=== PATIENT | male | born 1980 | race Hispanic/Latino ===

== ENCOUNTER 2020-07-02 19:58 | Emergency (ER) | payer SELFPAY ==
[2020-07-02 20:40] LABS: Urine Bacteria <20 /HPF (NONE SEEN); Urine Mucus 1+ /HPF (NONE SEEN); Urine RBC 20-50 /HPF (NONE SEEN)
[2020-07-02 20:42] LABS: Urine Blood 3+ (NEG); Urine Glucose 2+ (NEG); Urine Protein 2+ (NEG); Urine Specific Gravity 1.025 (1.005-1.030)
--- NOTE | 2020-07-02 20:52 | RAD REPORT ---
EXAM DESCRIPTION: CT - Stone Protocol - 07/02/2020 8:21 pm CLINICAL HISTORY: Abdominal pain. Hematuria COMPARISON: None. TECHNIQUE: Computed axial tomography of the abdomen pelvis was obtained without oral or IV contrast. Lack of IV and oral contrast limits evaluation of solid organs, bowel, and vessels. Coronal reformat ovidio images were obtained and reviewed. All CT scans are performed using dose optimization technique as appropriate and may include automated exposure control or mA/KV adjustment according to patient size. FINDINGS: A renal calculus is not seen. An ureteral calculus is not noted. A bladder calculus is not present. Fatty liver. , spleen, pancreas and adrenals appear grossly normal There is no evidence of diverticulitis. The appendix appears normal IMPRESSION: Negative for a genitourinary calculus
[2020-07-02 20:55] LABS: Absolute Lymphocytes (CBC) 1.6 K/uL (0.7-4.9); Basophils % 0.4 % (0-1.3); Hematocrit 47.5 % (39.6-49.0); Lymphocytes % 11.1 % (15.3-44.8); MPV 9.7 fL (7.6-11.3); RBC Red Blood Cell Count 5.06 M/uL (4.33-5.43)
[2020-07-02 21:10] LABS: BUN Blood Urea Nitrogen 11 mg/dL (7-18); Bicarbonate 28 mmol/L (21-32); Glucose Level 225 mg/dL (74-106); Potassium 3.6 mmol/L (3.5-5.1); Sodium Level 138 mmol/L (136-145)
[2020-07-02] MEDS ORDERED: CEFTRIAXONE/SWI 1gm 1 GM/10 ML SYR ONE (21:17)
[2020-07-02] MEDS ORDERED: NA CHLORIDE 0.9% 1,000 ML ONE (21:17)
--- NOTE | 2020-07-02 21:28 | EDPHYS ---
Physician Documentation [facility] Name: Magdy Trotter Age: 40 yrs Sex: Male : 1980 Arrival Date: 07/02/2020 Time: 20:02 Bed 13 Private MD: ED Physician Aguila Badillo HPI: 07/02 21:25 This 40 yrs old Male presents to ER via Ambulatory with complaints of Urinary kb Retention, BLOOD IN URINE. 21:26 The patient has not experienced similar symptoms in the past. The patient has not kb recently seen a physician. 21:26 The patient presents with urinary symptoms, dysuria, urinary frequency, urgency. Onset: kb The symptoms/episode began/occurred yesterday. Modifying factors: The symptoms are alleviated by nothing, the symptoms are aggravated by urinating. Associated signs and symptoms: Pertinent positives: dysuria, Pertinent negatives: abdominal pain, constipation, diarrhea, fever, hematuria, nausea, vomiting. Severity of symptoms: At their worst the symptoms were moderate, in the emergency department the symptoms are unchanged. Historical: - Allergies: 20:12 Aspirin; em - PMHx: 20:12 Diabetes - NIDDM; Hypertension; em - PSHx: 20:12 None; em - Immunization history:: Adult Immunizations up to date. - Social history:: Smoking status: Patient denies any tobacco usage or history of. ROS: 21:24 Constitutional: Negative for fever, chills, and weight loss, Cardiovascular: Negative kb for chest pain, palpitations, and edema, Respiratory: Negative for shortness of breath, cough, wheezing, and pleuritic chest pain, Abdomen/GI: Negative for abdominal pain, nausea, vomiting, diarrhea, and constipation, MS/Extremity: Negative for injury and deformity, Skin: Negative for injury, rash, and discoloration, Neuro: Negative for headache, weakness, numbness, tingling, and seizure. 21:24 : Positive for small amounts, burning with urination, difficulty urinating. Exam: 21:24 Constitutional: This is a well developed, well nourished patient who is awake, alert, kb and in no acute distress. Head/Face: Normocephalic, atraumatic. Chest/axilla: Normal chest wall appearance and motion. Nontender with no deformity. No lesions are appreciated. Cardiovascular: Regular rate and rhythm with a normal S1 and S2. No gallops, murmurs, or rubs. Normal PMI, no JVD. No pulse deficits. Respiratory: Lungs have equal breath sounds bilaterally, clear to auscultation and percussion. No rales, rhonchi or wheezes noted. No increased work of breathing, no retractions or nasal flaring. Abdomen/GI: Soft, non-tender, with normal bowel sounds. No distension or tympany. No guarding or rebound. No evidence of tenderness throughout. Skin: Warm, dry with normal turgor. Normal color with no rashes, no lesions, and no evidence of cellulitis. MS/ Extremity: Pulses equal, no cyanosis. Neurovascular intact. Full, normal range of motion. Neuro: Awake and alert, GCS 15, oriented to person, place, time, and situation. Cranial nerves II-XII grossly intact. Motor strength 5/5 in all extremities. Sensory grossly intact. Cerebellar exam normal. Normal gait. Vital Signs: 20:09 BP 173 / 122; Pulse 114; Resp 20; Temp 99.7(O); Pulse Ox 100% on R/A; Weight 70.76 kg; em Height 5 ft. 4 in. (162.56 cm); Pain 0/10; 21:00 BP 155 / 105; Pulse 115; Resp 16; Pulse Ox 100% on R/A; jb4 22:18 BP 143 / 98; Pulse 103; Resp 16; Pulse Ox 100% on R/A; jb4 20:09 Body Mass Index 26.78 (70.76 kg, 162.56 cm) em MDM: 20:03 Patient medically screened. kb 21:24 Data reviewed: vital signs, nurses notes. Data interpreted: Pulse oximetry: on room air kb is 100 %. Interpretation: normal. Counseling: I had a detailed discussion with the patient and/or guardian regarding: the historical points, exam findings, and any diagnostic results supporting the discharge/admit diagnosis, lab results, radiology results, the need for outpatient follow up, a family practitioner, to return to the emergency department if symptoms worsen or persist or if there are any questions or concerns that arise at home. 07/02 20:04 Order name: Urine Microscopic Only; Complete Time: 20:49 kb 07/02 20:04 Order name: CBC with Diff; Complete Time: 21:01 kb 07/02 20:04 Order name: Basic Metabolic Panel; Complete Time: 21:11 kb 07/02 20:07 Order name: CPK; Complete Time: 21:23 kb 07/02 20:32 Order name: Urine Dipstick--Ancillary (enter results); Complete Time: 20:49 tt3 07/02 20:41 Order name: Urine Culture [facility] 07/02 20:04 Order name: Bladder Scanner; Complete Time: 21:00 kb 07/02 20:04 Order name: Urine Dipstick-Ancillary (obtain specimen); Complete Time: 21:00 kb 07/02 20:04 Order name: CT Stone Protocol; Complete Time: 20:58 kb 07/02 20:04 Order name: IV Start; Complete Time: 21:00 kb Administered Medications: 21:10 Drug: NS 0.9% 1000 ml Route: IV; Rate: 1000 ml; Site: right antecubital; em 22:17 Follow up: Response: No adverse reaction; IV Status: Completed infusion; IV Intake: jb4 1000ml 21:10 Drug: Rocephin 1 grams Route: IV; Rate: calculated rate; Site: right antecubital; em 21:13 Follow up: IV Status: Completed infusion; IV Intake: 10ml jb4 21:40 Follow up: Response: No adverse reaction jb4 Disposition: 07/03 16:32 Co-signature as Attending Physician, Aguila Badillo MD I agree with the assessment and yoandy plan of care. Disposition: 07/02/20 21:27 Discharged to Home. Impression: Urinary tract infection, site not specified. - Condition is Stable. - Discharge Instructions: Urinary Tract Infection, Adult, [id number]. - Prescriptions for Augmentin 875- 125 mg Oral Tablet - take 1 tablet by ORAL route every 12 hours for 10 days; 20 tablet. - Medication Reconciliation Form, Thank You Letter, Antibiotic Education, Prescription Opioid Use form. - Follow up: Emergency Department; When: As needed; Reason: Worsening of condition. Follow up: Private Physician; When: 2 - 3 days; Reason: Recheck today's complaints, Continuance of care, Re-evaluation by your physician. Signatures: Dispatcher [facility]Le[facility] South Jackson StreetNereyda Kim, MAURICIO PATRICK-Aguila Monaco MD MD cha Munoz, Edgar, RN RN em [place], Pablo, RN RN jb4 Corrections: (The following items were deleted from the chart) 07/02 22:18 21:27 07/02/2020 21:27 Discharged to Home. Impression: Urinary tract infection, site jb4 not specified. Condition is Stable. Forms are Medication Reconciliation Form, Thank You Letter, Antibiotic Education, Prescription Opioid Use. Follow up: Emergency Department; When: As needed; Reason: Worsening of condition. Follow up: Private Physician; When: 2 - 3 days; Reason: Recheck today's complaints, Continuance of care, Re-evaluation by your physician. kb
--- NOTE | 2020-07-02 21:28 | ER ---
Nurse's Notes [facility] Name: Magdy Trotter Age: 40 yrs Sex: Male : 1980 Arrival Date: 07/02/2020 Time: 20:02 Bed 13 Private MD: Diagnosis: Urinary tract infection, site not specified Presentation: 07/02 20:09 Chief complaint: Patient states: reports difficulty urinating that started an hour ago, em reports brown urine, felt like he was running a fever yesterday, denies pain. Coronavirus screen: Client denies travel out of the [place] in the last 14 days. Ebola Screen: Patient negative for fever greater than or equal to 101.5 degrees Fahrenheit, and additional compatible Ebola Virus Disease symptoms Patient denies exposure to infectious person. Patient denies travel to an Ebola-affected area in the 21 days before illness onset. No symptoms or risks identified at this time. Initial Sepsis Screen: Does the patient meet any 2 criteria? HR > 90 bpm. No. Patient's initial sepsis screen is negative. Does the patient have a suspected source of infection? Yes: Dysuria/Frequency/Urgency/UTI. Risk Assessment: Do you want to hurt yourself or someone else?. Onset of symptoms was July 02, 2020. 20:09 Method Of Arrival: Ambulatory em 20:09 Acuity: GOLDIE 2 em Historical: - Allergies: 20:12 Aspirin; em - PMHx: 20:12 Diabetes - NIDDM; Hypertension; em - PSHx: 20:12 None; em - Immunization history:: Adult Immunizations up to date. - Social history:: Smoking status: Patient denies any tobacco usage or history of. Screenin:15 Abuse screen: Denies threats or abuse. Nutritional screening: No deficits noted. jb4 Tuberculosis screening: No symptoms or risk factors identified. Fall Risk None identified. Assessment: 20:15 General: Appears in no apparent distress. comfortable, Behavior is calm, cooperative, jb4 appropriate for age. Pain: Denies pain. Neuro: Level of Consciousness is awake, alert, obeys commands, Oriented to person, place, time, situation. Cardiovascular: Patient's skin is warm and dry. Respiratory: Airway is patent Respiratory effort is even, unlabored, Respiratory pattern is regular, symmetrical. GI: No signs and/or symptoms were reported involving the gastrointestinal system. : Urine is cloudy, blood tinged, Reports urinary frequency. EENT: No signs and/or symptoms were reported regarding the EENT system. Derm: Skin is intact, Skin is pink, warm \T\ dry. Musculoskeletal: Circulation, motion, and sensation intact. Range of motion: intact in all extremities. 21:15 Reassessment: Patient appears in no apparent distress at this time. Patient and/or jb4 family updated on plan of care and expected duration. Pain level reassessed. Patient is alert, oriented x 3, equal unlabored respirations, skin warm/dry/pink. 21:32 Reassessment: D/c pending completion of IV fluids. jb4 21:51 Reassessment: Patient appears in no apparent distress at this time. Patient and/or jb4 family updated on plan of care and expected duration. Pain level reassessed. Patient is alert, oriented x 3, equal unlabored respirations, skin warm/dry/pink. is at the bedside. 22:18 Reassessment: Patient appears in no apparent distress at this time. Patient and/or jb4 family updated on plan of care and expected duration. Pain level reassessed. Patient is alert, oriented x 3, equal unlabored respirations, skin warm/dry/pink. Vital Signs: 20:09 BP 173 / 122; Pulse 114; Resp 20; Temp 99.7(O); Pulse Ox 100% on R/A; Weight 70.76 kg; em Height 5 ft. 4 in. (162.56 cm); Pain 0/10; 21:00 BP 155 / 105; Pulse 115; Resp 16; Pulse Ox 100% on R/A; jb4 22:18 BP 143 / 98; Pulse 103; Resp 16; Pulse Ox 100% on R/A; jb4 20:09 Body Mass Index 26.78 (70.76 kg, 162.56 cm) em ED Course: 20:02 Patient arrived in ED. cf2 20:03 Nereyda Wheat FNP-C is [facility]. kb 20:03 Aguila Badillo MD is Attending Physician. kb 20:07 Pablo Zavaleta, SUBHASH is Primary Nurse. jb4 20:11 Triage completed. em 20:12 Arm band placed on. em 20:15 Patient has correct armband on for positive identification. Bed in low position. Call jb4 light in reach. Side rails up X 1. Pulse ox on. NIBP on. 20:21 CT completed. Patient tolerated procedure well. Patient moved back from CT. mw3 20:22 CT Stone Protocol In Process Unspecified. EDTN 20:45 Initial lab(s) drawn, by me, sent to lab. Inserted saline lock: 20 gauge in right jb4 antecubital area, using aseptic technique. Blood collected. 22:18 No provider procedures requiring assistance completed. IV discontinued, intact, jb4 bleeding controlled, No redness/swelling at site. Pressure dressing applied. Administered Medications: 21:10 Drug: NS 0.9% 1000 ml Route: IV; Rate: 1000 ml; Site: right antecubital; em 22:17 Follow up: Response: No adverse reaction; IV Status: Completed infusion; IV Intake: jb4 1000ml 21:10 Drug: Rocephin 1 grams Route: IV; Rate: calculated rate; Site: right antecubital; em 21:13 Follow up: IV Status: Completed infusion; IV Intake: 10ml jb4 21:40 Follow up: Response: No adverse reaction jb4 Intake: 21:13 IV: 10ml; Total: 10ml. jb4 22:17 IV: 1000ml; Total: 1010ml. jb4 Outcome: 21:27 Discharge ordered by . guido 21:52 Discharged to home ambulatory, with family. jb4 21:52 Condition: stable 21:52 Discharge instructions given to patient, Instructed on discharge instructions, follow up and referral plans. medication usage, Demonstrated understanding of instructions, follow-up care, medications, Prescriptions given X 1. 22:18 Patient left the ED. jb4 Addendum: 07/05/2020 07:45 Addendum: Culture Results: Positive urine culture. Bacteria is resistant to, has s s intermediate sensitivity, or is not tested against prescribed antibiotics. Report given to SHARRON for further evaluation and then to anode adjuster for follow up with patient. 13:43 Addendum: Culture Results: Phone call Attempt #1 no answer, VM full. Unable to leave .s s Signatures: Dispatcher [employer] EDTN Nereyda Wheat, Wilmer Anguiano RN RN Sona Ferguson RN RN Pablo Zavaleta RN RN jb4 Roxi Cheney mw3 Landen Romero cf2
[2020-07-03 02:41] VITALS: TEMP 99.7; O2SAT 100
[2020-07-03 02:44] VITALS: BP 143/98
== END 2020-07-02 22:18 | disposition home or self-care (01) ==
LOC: ER 19:58
DX: N39.0 Urinary tract infection, site not specified (principal); I10 Essential (primary) hypertension; Z88.6 Allergy status to analgesic agent
CPT/HCPCS: 36415; 74176; 76377; 80048; 81003; 81015; 82550; 85025; 87077; 87086; 87088; 87186; 96361; 96374; 99284; J0696; J7030

== ENCOUNTER 2024-03-22 20:57 | Emergency (ER) | payer SELFPAY ==
[2024-03-22] MEDS ORDERED: KETOROLAC 30 MG/ML INJ ONE (22:02)
[2024-03-22] MEDS ORDERED: hydrOXYzine HCL 25 MG TAB ONE (22:02)
[2024-03-22 22:23] LABS: Absolute Eosinophils 0.1 K/uL (0-0.5); Absolute Lymphocytes (CBC) 1.5 K/uL (0.7-4.9); Absolute Monocytes 0.5 K/uL (0.1-1.3); Absolute Neutrophil 5.1 K/uL (1.8-8.0); Basophils % 0.2 % (0-1.3); Eosinophils % 0.8 % (0-4.4); Hematocrit 42.8 % (39.6-49.0); Lymphocytes % 20.6 % (15.3-44.8); MCV 94.4 fL (80-100); MPV 9.4 fL (7.6-11.3); Monocytes % 6.4 % (3.3-12.3); Nucleated Red Blood Cells % 0.1 % (0-0); Platelets 206 thou/uL (152-406); RBC Red Blood Cell Count 4.53 M/uL (4.33-5.43); Red Cell Distribution Width 12.9 % (12.1-15.2)
[2024-03-22 22:40] LABS: Anion Gap 8.6 mEq/L (5.0-15.0); Potassium 3.6 mEq/L (3.5-5.1)
--- NOTE | 2024-03-22 22:54 | ER ---
Nurse's Notes [facility] Name: Magdy Trotter Age: 43 yrs Sex: Male : 1980 Arrival Date: 03/22/2024 Time: 20:57 Bed 16 Private MD: Diagnosis: Cellulitis, unspecified;Anxious;Hyperglycemia, unspecified Presentation: 03/22 21:47 Chief complaint: Patient states: last weekend sprayed over foot wirg can washer. vc1 Coronavirus screen: Client denies travel out of the [place] in the last 14 days. At this time, the client does not indicate any symptoms associated with coronavirus-19. Ebola Screen: Patient negative for fever greater than or equal to 101.5 degrees Fahrenheit, and additional compatible Ebola Virus Disease symptoms Patient denies exposure to infectious person. Patient denies travel to an Ebola-affected area in the 21 days before illness onset. No symptoms or risks identified at this time. Initial Sepsis Screen: Does the patient meet any 2 criteria? No. Patient's initial sepsis screen is negative. Does the patient have a suspected source of infection? No. Patient's initial sepsis screen is negative. Risk Assessment: Do you want to hurt yourself or someone else? Patient reports no desire to harm self or others. Onset of symptoms was March 15, 2024. Care prior to arrival: None. Activity prior to arrival: None. Mechanism of Injury: can washer. Transition of care: patient was not received from another setting of care. 21:47 Method Of Arrival: Ambulatory vc1 21:47 Acuity: GOLDIE 4 vc1 Triage Assessment: 21:51 General: Appears in no apparent distress. comfortable, slender, well groomed, well vc1 developed, well nourished, Behavior is cooperative, anxious. Pain: Complains of pain in dorsum of left foot Pain does not radiate. Pain currently is 1 out of 10 on a pain scale. EENT: No deficits noted. No signs and/or symptoms were reported regarding the EENT system. Neuro: Level of Consciousness is awake, alert, obeys commands, Oriented to person, place, time, situation, Appropriate for age. Cardiovascular: Capillary refill < 3 seconds Patient's skin is warm and dry. Respiratory: Airway is patent Respiratory effort is even, unlabored, Respiratory pattern is regular, symmetrical. GI: No deficits noted. No signs and/or symptoms were reported involving the gastrointestinal system. : No deficits noted. No signs and/or symptoms were reported regarding the genitourinary system. Derm: Wound noted dorsum of left foot. Musculoskeletal: No deficits noted. No signs and/or symptoms reported regarding the musculoskeletal system. Historical: - Allergies: 21:49 Aspirin; vc1 - Home Meds: 21:49 Metformin Oral [Active]; Lisinopril Oral [Active]; vc1 - PMHx: 21:49 Diabetes - NIDDM; Hypertension; vc1 - PSHx: 21:49 None; vc1 - Immunization history:: Adult Immunizations up to date. - Infectious Disease History:: Denies. - Social history:: Smoking status: Patient denies any tobacco usage or history of. Patient uses alcohol, on a daily basis. admits to "couple of beers" a day. Screenin:53 [facility] ED Fall Risk Assessment (Adult) History of falling in the last 3 months, vc1 including since admission No falls in past 3 months (0 pts) Confusion or Disorientation No (0 pts) Intoxicated or Sedated No (0 pts) Impaired Gait No (0 pts) Mobility Assist Device Used No (0 pt) Altered Elimination No (0 pt) Score/Fall Risk Level 0 - 2 = Low Risk Oriented to surroundings, Maintained a safe environment, Educated pt \\T\\ family on fall prevention, incl call for assistance when getting out of bed. Abuse screen: Denies threats or abuse. Nutritional screening: No deficits noted. Tuberculosis screening: No symptoms or risk factors identified. Assessment: 22:14 General: Appears in no apparent distress. comfortable, slender, well groomed, Behavior pc2 is calm, cooperative, appropriate for age. Pain: Complains of pain in left foot Pain currently is 1 out of 10 on a pain scale. Aggravated by increased activity, repositioning, weight bearing. Neuro: Level of Consciousness is awake, alert, obeys commands, Oriented to person, place, time, situation. Cardiovascular: Patient's skin is warm and dry. Respiratory: Airway is patent Respiratory effort is even, unlabored, Respiratory pattern is regular, symmetrical. GI: No signs and/or symptoms were reported involving the gastrointestinal system. : No signs and/or symptoms were reported regarding the genitourinary system. EENT: No signs and/or symptoms were reported regarding the EENT system. Derm: Skin is intact, is healthy with good turgor, Wound noted Other: reports the skin came off when he first accidentally sprayed foot with can washer. area appears to be healing Bruising that is bright red. Musculoskeletal: No signs and/or symptoms reported regarding the musculoskeletal system. Vital Signs: 21:47 BP 189 / 113; Pulse 115; Resp 20; Temp 97.3; Pulse Ox 100% ; Weight 66.22 kg; Height 5 vc1 ft. 4 in. ; Pain 1/10; 22:11 BP 176 / 99; Pulse 100; ec2 22:54 BP 173 / 108; Pulse 97; ec2 23:29 BP 143 / 90; Pulse 84; Resp 18; Pulse Ox 97% on R/A; pc2 21:47 Body Mass Index 25.06 (66.22 kg, 162.56 cm) vc1 21:47 Pain Scale: Adult vc1 ED Course: 20:59 Patient arrived in ED. ra3 20:59 Gino Hancock MD is Attending Physician. ec2 21:49 Triage completed. vc1 21:52 Arm band placed on right wrist. vc1 21:53 Patient has correct armband on for positive identification. Bed in low position. Call vc1 light in reach. Pulse ox on. NIBP on. 21:56 Aby Tatum, RN is Primary Nurse. pc2 22:10 Inserted saline lock: 20 gauge in left antecubital area, using aseptic technique. Blood pc2 collected. Flushed with 10 mL NS. 22:13 BMP Sent. pc2 22:13 CBC with Diff Sent. pc2 22:13 No provider procedures requiring assistance completed. pc2 22:17 Provided Education on: POC and time frame. pc2 23:45 IV discontinued, intact, bleeding controlled, No redness/swelling at site. Pressure pc2 dressing applied. Administered Medications: 22:13 Drug: hydrOXYzine PO 50 mg PO once Route: PO; pc2 23:28 Follow up: Response: No adverse reaction; RASS: Alert and Calm (0) pc2 22:13 Drug: Ketorolac IVP 15 mg IVP once Route: IVP; Site: left antecubital; pc2 23:28 Follow up: Response: No adverse reaction pc2 23:30 Drug: Trimethoprim-Sulfamethoxazole PO (160 mg-800 mg (DS) 1 tablet PO once Route: PO; pc2 23:45 Follow up: Response: Medication administered at discharge. pc2 Medication: 22:17 VIS not applicable for this client. pc2 Outcome: 22:54 Discharge ordered by . ec2 23:44 Discharged to home ambulatory, pc2 23:44 Condition: stable 23:44 Discharge instructions given to patient, Instructed on discharge instructions, follow up and referral plans. medication usage, Demonstrated understanding of instructions, follow-up care, medications, Prescriptions given X 1, 23:46 Patient left the ED. pc2 Signatures: Amina Morris, RN RN vc1 Gino Hancock MD MD ec2 Pili Swanson ra3 Aby Tatum, RN RN pc2
--- NOTE | 2024-03-22 22:55 | EDPHYS ---
Physician Documentation [facility] Name: Magdy Trotter Age: 43 yrs Sex: Male : 1980 Arrival Date: 03/22/2024 Time: 20:57 Bed 16 Private MD: ED Physician Gino Hancock HPI: 03/22 21:38 This 43 yrs old Male presents to ER via Unassigned with complaints of Foot ec2 Pain - swelling psbl wound. 21:38 Patient arrives today for evaluation of a wound to the left dorsum of the foot. States ec2 that he was pressure washing last week with sandals on and subsequently injured his left foot. Patient reports otherwise no fevers or chills, no nausea or vomiting, states he had a small wound and has some redness around it. Patient reports otherwise he is markedly anxious and was concerned about his foot. Historical: - Allergies: 21:49 Aspirin; vc1 - Home Meds: 21:49 Metformin Oral [Active]; Lisinopril Oral [Active]; vc1 - PMHx: 21:49 Diabetes - NIDDM; Hypertension; vc1 - PSHx: 21:49 None; vc1 - Immunization history:: Adult Immunizations up to date. - Infectious Disease History:: Denies. - Social history:: Smoking status: Patient denies any tobacco usage or history of. Patient uses alcohol, on a daily basis. admits to "couple of beers" a day. ROS: 21:38 Constitutional: as per hpi ec2 Exam: 21:38 Constitutional: GEN: NAD Head: atraumatic Eyes: EOMI Ears: External ears are ec2 normal. CV: Tachycardia LUNGS: no respiratory distress ABD: non-distended SKIN: Small approximately 2 cm wound to the dorsum of the left foot with surrounding redness, no crepitus, no fluctuance appreciated. MSK: no evidence of trauma Vital Signs: 21:47 BP 189 / 113; Pulse 115; Resp 20; Temp 97.3; Pulse Ox 100% ; Weight 66.22 kg; Height 5 vc1 ft. 4 in. ; Pain 1/10; 22:11 BP 176 / 99; Pulse 100; ec2 22:54 BP 173 / 108; Pulse 97; ec2 23:29 BP 143 / 90; Pulse 84; Resp 18; Pulse Ox 97% on R/A; pc2 21:47 Body Mass Index 25.06 (66.22 kg, 162.56 cm) vc1 21:47 Pain Scale: Adult vc1 MDM: 21:29 Patient medically screened. ec2 21:38 Data reviewed: vital signs. ED course: Patient arrives today for evaluation of a left ec2 foot wound. Examination remarkable for skin findings as above. Will obtain lab work. Suspect possible cellulitis along with anxiety. Evaluating for organ dysfunction.. 22:32 ED course: CBC reassuring.. ec2 22:53 ED course: Metabolic profile shows hyperglycemia otherwise nonactionable. Will ec2 discharge home, instructed on maintaining glucose control. Will start the patient on antibiotics as well. . 03/22 21:37 Order name: CBC with Diff; Complete Time: 22:32 ec2 03/22 21:37 Order name: BMP; Complete Time: 22:53 ec2 Administered Medications: 22:13 Drug: hydrOXYzine PO 50 mg PO once Route: PO; pc2 23:28 Follow up: Response: No adverse reaction; RASS: Alert and Calm (0) pc2 22:13 Drug: Ketorolac IVP 15 mg IVP once Route: IVP; Site: left antecubital; pc2 23:28 Follow up: Response: No adverse reaction pc2 23:30 Drug: Trimethoprim-Sulfamethoxazole PO (160 mg-800 mg (DS) 1 tablet PO once Route: PO; pc2 23:45 Follow up: Response: Medication administered at discharge. pc2 Disposition Summary: 03/22/24 22:54 Discharge Ordered Notes: Location: Home ec2 Condition: Stable ec2 Diagnosis - Cellulitis, unspecified ec2 - Anxious ec2 - Hyperglycemia, unspecified ec2 Followup: ec2 - With: Private Physician - When: - Reason: Re-evaluation by your physician Discharge Instructions: - Discharge Summary Sheet ec2 - Cellulitis, Adult ec2 Forms: - Medication Reconciliation Form ec2 - Antibiotic Education ec2 - Prescription Opioid Use ec2 - Patient Portal Instructions ec2 - Leadership Thank You Letter ec2 Prescriptions: - Bactrim DS 800-160 mg Oral Tablet - take 1 tablet ORAL route every 12 hours for 7 days; 14 tablet; Refills: 0, ec2 Product Selection Permitted Signatures: Dispatcher [employer] Amina Shields RN RN vc1 Gino Hancock MD MD ec2 Aby Tatum, RN RN pc2
[2024-03-22] MEDS ORDERED: SMZ./TMP. 800/160 MG TABLET ONE (23:32)
[2024-03-22 23:50] VITALS: TEMP 97.3
[2024-03-22 23:54] VITALS: BP 143/90; O2SAT 97
== END 2024-03-22 23:46 | disposition home or self-care (01) ==
LOC: ER 20:57
DX: L03.116 Cellulitis of left lower limb (principal); F41.9 Anxiety disorder, unspecified; E11.65 Type 2 diabetes mellitus with hyperglycemia
CPT/HCPCS: 36415; 80048; 85025; 96374; 99284

== ENCOUNTER 2024-08-06 22:57 | Emergency (ER) | payer SELFPAY ==
[2024-08-06] MEDS ORDERED: NA CHLORIDE 0.9% 1,000 ML ONE (23:38)
[2024-08-06] MEDS ORDERED: LORAZEPAM 1 MG TABLET ONE (23:38)
[2024-08-06 23:47] LABS: Absolute Eosinophils 0.1 K/uL (0-0.5); Absolute Lymphocytes (CBC) 2.5 K/uL (0.7-4.9); Absolute Monocytes 0.4 K/uL (0.1-1.3); Absolute Neutrophil 4.3 K/uL (1.8-8.0); Basophils % 0.2 % (0-1.3); Eosinophils % 1.7 % (0-4.4); Hematocrit 44.1 % (39.6-49.0); Hemoglobin 15.5 g/dL (13.6-17.9); Lymphocytes % 34.2 % (15.3-44.8); MCH 32.7 pg (27.0-35.0); MCHC 35.2 g/dL (32.0-36.0); MCV 92.9 fL (80-100); MPV 8.4 fL (7.6-11.3); Monocytes % 5.4 % (3.3-12.3); Neutrophils % 58.5 % (41.7-73.7); Nucleated Red Blood Cells % 0.2 % (0-0); Platelets 240 thou/uL (152-406); RBC Red Blood Cell Count 4.74 M/uL (4.33-5.43); Red Cell Distribution Width 13.1 % (12.1-15.2)
[2024-08-07 00:16] LABS: Anion Gap 8.1 mEq/L (5.0-15.0); Magnesium 2.1 mg/dL (1.6-2.4); Potassium 4.1 mEq/L (3.5-5.1); Troponin High Sensitivity 4.2 pg/mL (<58.9)
[2024-08-07 00:17] LABS: Thyroid Stimulating Hormone 4.69 uIU/mL (0.358-3.740)
--- NOTE | 2024-08-07 00:51 | ER ---
Nurse's Notes [facility] Name: Magdy Trotter Age: 44 yrs Sex: Male : 1980 Arrival Date: 08/06/2024 Time: 22:57 Bed 19 Private MD: Diagnosis: Palpitations Presentation: 08/06 23:11 Chief complaint: Patient states: C/O ELEVATED HR FOR OVER 1 WEEK WITH PALPATATIONS. br2 Coronavirus screen: Client denies travel out of the [place] in the last 14 days. Ebola Screen: Patient denies exposure to infectious person. Patient denies travel to an Ebola-affected area in the 21 days before illness onset. Initial Sepsis Screen: Does the patient meet any 2 criteria? No. Patient's initial sepsis screen is negative. Does the patient have a suspected source of infection? No. Patient's initial sepsis screen is negative. Risk Assessment: Do you want to hurt yourself or someone else? Patient reports no desire to harm self or others. Onset of symptoms was June 2024. 23:11 Method Of Arrival: Ambulatory br2 23:11 Acuity: GOLDIE 3 br2 Triage Assessment: 23:19 General: Behavior is calm, cooperative. rg5 23:19 Pain: Denies pain. rg5 Historical: - Allergies: 23:15 Aspirin; br2 - PMHx: 23:15 Diabetes - NIDDM; Hypertension; br2 - Immunization history:: Adult Immunizations up to date. - Infectious Disease History:: Denies. - Social history:: Smoking status: unknown. Screenin:20 [facility] ED Fall Risk Assessment (Adult) History of falling in the last 3 months, rg5 including since admission No falls in past 3 months (0 pts) Confusion or Disorientation No (0 pts) Intoxicated or Sedated No (0 pts) Impaired Gait No (0 pts) Mobility Assist Device Used No (0 pt) Altered Elimination No (0 pt) Score/Fall Risk Level 0 - 2 = Low Risk Oriented to surroundings, Maintained a safe environment, Hourly rounding (assess needs \T\ fall precautionary measures) done. 23:20 Abuse screen: Denies threats or abuse. Nutritional screening: No deficits noted. rg5 Tuberculosis screening: No symptoms or risk factors identified. Assessment: 23:30 General: Appears in no apparent distress. rg5 23:30 Pain: Denies pain. Pain does not radiate. Pain began 2 hours ago. Cardiovascular: rg5 Reports palpitations. Respiratory: Airway is patent Trachea midline Respiratory effort is even, unlabored, Respiratory pattern is regular, symmetrical. GI: No signs and/or symptoms were reported involving the gastrointestinal system. : No signs and/or symptoms were reported regarding the genitourinary system. EENT: No deficits noted. Derm: Skin is intact, Skin is dry, Skin is normal, Skin temperature is warm. Musculoskeletal: Circulation, motion, and sensation intact. Range of motion: intact in all extremities. Vital Signs: 23:11 BP 180 / 113; Pulse 109; Resp 18; Temp 98.6; Pulse Ox 100% ; Weight 72.57 kg; Height 5 br2 ft. 4 in. ; Pain 0/10; 23:30 BP 157 / 93; Pulse 109; Resp 19; Pulse Ox 100% on R/A; Pain 0/10; rg5 08/07 00:00 BP 124 / 78; Pulse 98; Resp 18; Pulse Ox 98% on R/A; rg5 00:38 BP 141 / 96; Pulse 93; Resp 18; Pulse Ox 98% on R/A; rg5 08/06 23:11 Body Mass Index 27.46 (72.57 kg, 162.56 cm) br2 08/06 23:11 Pain Scale: Adult br2 23:30 Pain Scale: Adult rg5 ED Course: 08/06 22:58 Patient arrived in ED. jj6 23:07 Nereyda Wheat FNP-C [facility] kb 23:07 Gilbert Miller MD is Attending Physician. kb 23:15 Triage completed. br2 23:19 Arm band placed on right wrist. rg5 23:20 No provider procedures requiring assistance completed. Patient maintains SpO2 rg5 saturation greater than 95% on room air. 23:20 Patient has correct armband on for positive identification. Bed in low position. Call rg5 light in reach. Side rails up X 1. Client placed on continuous cardiac and pulse oximetry monitoring. NIBP monitoring applied. phototypesetting equipment monitor on. Pulse ox on. NIBP on. Door closed. Noise minimized. Verbal reassurance given. 23:30 Provided Education on: post er care. rg5 23:37 Omar Morrow, SUBHASH is Primary Nurse. rg5 23:42 EKG done, by ED staff, reviewed by Nereyda MARTÍNEZ. oe 23:44 Inserted saline lock: 20 gauge in left antecubital area, using aseptic technique. Blood br2 collected. Flushed with 10 mL NS. 08/07 00:09 XRAY Chest (1 view) In Process Unspecified. EDMS 01:15 IV discontinued, bleeding controlled, No redness/swelling at site. Pressure dressing rg5 applied. Administered Medications: 08/06 23:43 Drug: LORazepam PO 1 mg PO once Route: PO; br2 08/07 00:00 Follow up: Response: No adverse reaction rg5 00:26 Follow up: Response: No adverse reaction rg5 08/06 23:43 Drug: NS 0.9% IV 1000 ml IV at 1000 ml once; to be given as a bolus over 60 minutes br2 Route: IV; Rate: 1000 ml; Site: left antecubital; 08/07 00:15 Follow up: IV Status: Completed infusion; IV Intake: 1000ml rg5 Medication: 08/06 23:30 VIS not applicable for this client. rg5 Intake: 08/07 00:15 IV: 1000ml; Total: 1000ml. rg5 Outcome: 00:51 Discharge ordered by . kb 01:15 Discharged to home ambulatory, rg5 01:15 Condition: stable 01:15 Instructed on discharge instructions, follow up and referral plans. Demonstrated understanding of instructions, follow-up care, medications, 01:16 Patient left the ED. rg5 Signatures: Dispatcher [employer] EDVT Nereyda Wheat FNP-C [employer]-CkRonaldo Pedroza Jennifer jj6 Omar Morrow, RN RN rg5 Liana Lee RN RN br2 Corrections: (The following items were deleted from the chart) 08/06 23:23 23:11 Chief complaint: Patient states: C/O ELEVATED HR FOR OVER 1 WEEK. br2 br2
--- NOTE | 2024-08-07 00:51 | EDPHYS ---
Physician Documentation [facility] Name: Magdy Trotter Age: 44 yrs Sex: Male : 1980 Arrival Date: 08/06/2024 Time: 22:57 Bed 19 Private MD: ED Physician Gilbert Miller HPI: 08/06 23:19 This 44 yrs old Male presents to ER via Ambulatory with complaints of kb Irregular Pulse, Dizziness. 23:19 Patient is a 44-year-old male who presents for palpitations that have been intermittent kb for the last few weeks but worse tonight. States he goes to sleep at night and whenever he wakes up they are gone but then he starts thinking about it and the symptoms come back. States he has a history of anxiety but has not been treated for it. States his doctor changed his blood pressure medicine from lisinopril to irbesartan 2 months ago and he believes that is part of the problem. Denies chest pain or shortness of breath.. Historical: - Allergies: 23:15 Aspirin; br2 - PMHx: 23:15 Diabetes - NIDDM; Hypertension; br2 - Immunization history:: Adult Immunizations up to date. - Infectious Disease History:: Denies. - Social history:: Smoking status: unknown. ROS: 23:18 Constitutional: As per HPI kb Exam: 23:18 Constitutional: This is a well developed, well nourished patient who is awake, alert, kb and in no acute distress. Head/Face: Normocephalic, atraumatic. ENT: Moist Mucous membranes Respiratory: Respirations even and unlabored. No increased work of breathing. Talking in full sentences Abdomen/GI: Soft, non-tender. No distention Skin: Warm, dry with normal turgor. Normal color. MS/ Extremity: Pulses equal, no cyanosis. Neurovascular intact. Full, normal range of motion. Neuro: Awake and alert, GCS 15, oriented to person, place, time, and situation. 23:18 Cardiovascular: Rate: tachycardic, Rhythm: regular, Heart sounds: normal, 23:45 ECG was reviewed by the Attending Physician. Vital Signs: 23:11 BP 180 / 113; Pulse 109; Resp 18; Temp 98.6; Pulse Ox 100% ; Weight 72.57 kg; Height 5 br2 ft. 4 in. ; Pain 0/10; 23:30 BP 157 / 93; Pulse 109; Resp 19; Pulse Ox 100% on R/A; Pain 0/10; rg5 08/07 00:00 BP 124 / 78; Pulse 98; Resp 18; Pulse Ox 98% on R/A; rg5 00:38 BP 141 / 96; Pulse 93; Resp 18; Pulse Ox 98% on R/A; rg5 08/06 23:11 Body Mass Index 27.46 (72.57 kg, 162.56 cm) br2 08/06 23:11 Pain Scale: Adult br2 23:30 Pain Scale: Adult rg5 MDM: 08/06 23:07 Medical Screening Exam initiated kb 23:20 Differential diagnosis: Arrhythmia, malignant hypertension. Data reviewed: vital signs, kb nurses notes. Historians other than the Patient: Spouse/Significant Other: . 08/07 00:50 Counseling: I had a detailed discussion with the patient and/or guardian regarding the kb historical points, exam findings, and any diagnostic results supporting the discharge/admit diagnosis, lab results, radiology results, the need for outpatient follow up, a family practitioner, to return to the emergency department if symptoms worsen or persist or if there are any questions or concerns that arise at home. Response to treatment: the patient's symptoms have markedly improved after treatment. 08/06 23:15 Order name: Basic Metabolic Panel; Complete Time: 00:34 kb 08/06 23:15 Order name: CBC with Diff; Complete Time: 23:58 kb 08/06 23:15 Order name: Magnesium; Complete Time: 00:34 kb 08/06 23:15 Order name: Troponin HS; Complete Time: 00:34 kb 08/06 23:15 Order name: TSH; Complete Time: 00:34 kb 08/07 00:19 Order name: T4 Free; Complete Time: 00:34 EDMS 08/06 23:15 Order name: XRAY Chest (1 view) kb 08/06 23:15 Order name: Cardiac monitoring; Complete Time: 23:39 kb 08/06 23:15 Order name: EKG - Nurse/Tech; Complete Time: 23:39 kb 08/06 23:15 Order name: IV Saline Lock; Complete Time: 23:39 kb 08/06 23:15 Order name: Labs collected and sent; Complete Time: 23:39 kb 08/06 23:15 Order name: O2 Per Protocol; Complete Time: 23:39 kb 08/06 23:15 Order name: O2 Sat Monitoring; Complete Time: 23:39 kb 08/07 00:35 Order name: Vital Signs; Complete Time: 00:49 kb EC/01 23:45 Rate is 108 beats/min. Rhythm is regular. QRS [place] is Normal. ID interval is normal at kb 122 msec. QRS interval is normal at 84 msec. QT interval is normal at 450 msec. Administered Medications: 23:43 Drug: LORazepam PO 1 mg PO once Route: PO; br2 08/07 00:00 Follow up: Response: No adverse reaction rg5 00:26 Follow up: Response: No adverse reaction rg5 08/06 23:43 Drug: NS 0.9% IV 1000 ml IV at 1000 ml once; to be given as a bolus over 60 minutes br2 Route: IV; Rate: 1000 ml; Site: left antecubital; 08/07 00:15 Follow up: IV Status: Completed infusion; IV Intake: 1000ml rg5 Disposition: 06:49 Co-signature as Attending Physician, Gilbert Miller MD I agree with the assessment sp4 and plan of care. I reviewed the patient's care provided by the Advanced Practice Provider and agree with the diagnosis and treatment plan. Disposition Summary: 08/07/24 00:51 Discharge Ordered Notes: Location: Home Condition: Stable kb Diagnosis - Palpitations kb Followup: kb - With: Emergency Department - When: As needed - Reason: Worsening of condition Followup: kb - With: Private Physician - When: 2 - 3 days - Reason: Recheck today's complaints, Continuance of care, Re-evaluation by your physician Discharge Instructions: - Discharge Summary Sheet kb - Panic Attack, [id number] kb - Palpitations, [id number] kb Forms: - Medication Reconciliation Form kb - Antibiotic Education kb - Prescription Opioid Use kb - Patient Portal Instructions kb - Leadership Thank You Letter kb Prescriptions: - Hydroxyzine HCl 25 mg Oral tablet - take 1 tablet ORAL route every 12 hours As needed; 12 tablet; Refills: 0, kb Product Selection Permitted Signatures: Dispatcher [employer] EDNereyda Kim, CELINA-C Gilbert Mcnally MD MD sp4 Omar Morrow RN RN rg5 Liana Lee, RN RN br2 Corrections: (The following items were deleted from the chart) 08/06 23:15 23:15 BASIC METABOLIC PANEL+C.LAB.BRZ ordered. EDMS EDMS 23:15 23:15 CBC+H.LAB.BRZ ordered. EDMS EDMS 23:15 23:15 MAGNESIUM+C.LAB.BRZ ordered. EDMS EDMS 23:15 23:15 Troponin High Sensitivity+C.LAB.BRZ ordered. EDMS EDMS 23:15 23:15 THYROID STIMULAT HORMONE+C.LAB.BRZ ordered. EDMS EDMS 23:15 23:15 Chest Single View+RAD.RAD.BRZ ordered. EDMS EDMS
[2024-08-07 02:24] VITALS: TEMP 98.6
[2024-08-07 02:26] VITALS: O2SAT 98
[2024-08-07 02:28] VITALS: BP 141/96
--- NOTE | 2024-08-07 06:16 | RAD REPORT ---
EXAM DESCRIPTION: Chest Single View CLINICAL HISTORY: PALPITATIONS COMPARISON: None TECHNIQUE: Single AP view of the chest. FINDINGS: Lung volumes adequate. Cardiac silhouette is normal in size. No pneumothorax. No large pleural effusion. No focal consolidation. No acute bony finding. IMPRESSION: No evidence of acute cardiopulmonary disease. Electronically signed by: Yolanda Reed MD 08/07/2024 12:23 AM [facility] Z9 Due to temporary technical issues with the PACS/Mixers reporting system, reports are being phyllis d by the in-house radiologist without review as a courtesy to ensure prompt reporting the interpreting radiologist is fully responsible for the content of the report. Transcribed Date/Time: 08/07/2024 6:16 AM
--- NOTE | 2024-08-08 12:44 | EKG ---
Test Date: 2024-08-06 Test Time: 23:39:22 Crown Presser: CAROLINE MEASUREMENT RESULTS: Intervals: Rate: 108 MS: 122 QRSD: 84 QT: 336 QTc: 450 [place]: P: 64 MS: 122 QRS: 35 T: 34 INTERPRETIVE STATEMENTS: Sinus tachycardia Otherwise normal ECG No previous ECG available for comparison Electronically Signed On 08-08-24 12:41:22 [employer] ADMINISTRATOR by Jay Jaffe
== END 2024-08-07 01:16 | disposition home or self-care (01) ==
LOC: ER 22:57
DX: R00.2 Palpitations (principal); I10 Essential (primary) hypertension; E11.9 Type 2 diabetes mellitus without complications; Z88.8 Allergy status to other drugs, medicaments and biological substances
CPT/HCPCS: 36415; 71045; 80048; 83735; 84439; 84443; 84484; 85025; 93005; 96360; 99285; J7030